=== PATIENT | male | born 1975 | race Caucasian/White ===

== ENCOUNTER 2017-01-11 04:42 | Emergency (ER) | payer SELFPAY ==
[~2017-01-11 04:42] MED LIST: BENZ5TA PO; HALO1TA PO; NO HOME MEDS
== END 2017-01-11 07:45 | disposition expired ==
LOC: EDBD 04:42 → M ED 05:56
DX: I46.9 Cardiac arrest, cause unspecified (principal)

== ENCOUNTER → 2017-01-12 | Outpatient (REF) | LOC: M LAB REF 13:40 | DX: Z02.89 Encounter for other administrative examinations (principal) ==